=== PATIENT | female | born 1985 | race Hispanic/Latino ===

== ENCOUNTER 2020-02-07 19:41 | Inpatient (IN) | payer OTHER ==
[~2020-02-07] VITALS: Ht 170.2 cm; Wt 136.5 kg
--- NOTE | 2020-02-07 20:21 | Emergency Department Note ---
History of Present Illnes History of Present Illness Chief Complaint: cough, sob History of Present Illness This is a 34 year old female, with no significant past medical history, who presents with a 2 day history of progressively worsening cough, "difficulty catching her breath, and shortness of breath on exertion." Patient states that the cough has worsened today, and she is now coughing up brown sputum. She denies any hemoptysis. She states that she had fever 2 days ago just over 100, but that resolved without intervention. She denies any history of asthma, but she has had chest tightness and wheezing, especially with coughing. She also states that she has "soreness in her chest," with coughing. Patient denies any known sick contacts and no travel. She denies any exposure to people who aren't known to be positive for COVID 19. She denies any nausea, vomiting, abdominal pain, or diarrhea. ,and she is now coughing up brown sputum. She denies any history of asthma or smoking, but she has had chest tightness and wheezing, with the cough. She denies any pleuritic chest pain, but she is having "soreness in her lateral chest," with coughing. She had a temp of just over 100 degrees, 2 days ago, that resolved without intervention. Patient denies any known sick contacts or travel. She denies any exposure to people who have been positive for Covid 19. Patient denies any abdominal pain, nausea, vomiting, or dysuria. She also denies any LE pain or edema. Historian: Patient Arrival Mode: Car Additional Treatment MALWARE ANALYST: none Pulper Tender Required: No Onset (how long ago): day(s) Location: chest Quality: coughing, chest tightness and SOB Radiation: non-radiation Severity: moderate Onset quality: gradual Duration (how long): day(s) (2) Timing of current episode: constant Progression: worsening Chronicity: new Context: other (patient denies recent illness, travel, or immobilization. Patient had a DVT 5 years ago, during her last .) Relieving factors: none Exacerbating factors: movement (dyspnea on exertion) Associated symptoms: fever/chills (2 days ago, none in the last 24 hours.), shortness of breath Treatments prior to arrival: none Risk factors: Morbid obesity Past Medical/Family History Physician Review I have reviewed the patient's past medical and family history. Any updates have been documented here. Past Medical History Recent Fever: Yes (2 days ago, just over 100 degrees) Clinical Suspicion of Infectio: Yes New/Unexplained Change in Ment: No Past Medical History: DVT/PE (history of DVT,during last 5 years ago, treated with Lovenox, throughout the .) Past Surgical History: Tubal Ligation, (x3) Other Surgery: foot surgery Social History Smoking Cessation: Never Smoker Alcohol Use: None Any Illegal Drug Use: No TB Exposure/Symptoms: No Physically hurt or threatened: No Family History Family history of heart diseas: No Other Last Tetanus: unknown Any Pre-Existing Lines (PICC,: No Is patient up to date on immun: No Review of Systems Review of Systems Constitutional: fever EENTM: no symptoms Cardiovascular: no symptoms Respiratory: change in phlegm color, cough, pain with cough, dyspnea, dyspnea o n exertion Gastrointestinal: no symptoms Genitourinary: no symptoms Musculoskeletal: no symptoms Neurological: no symptoms Psychological: no symptoms Review of other systems All other systems reviewed and negative. Physical Exam Related Data Triage Vital Signs Vital Signs Date Time Temp Pulse Resp B/P (MAP) Pulse Ox O2 Delivery O2 Flow Rate FiO2 02/07/20 19:59 96 Room Air Vital signs reviewed: Yes Physical Exam CONSTITUTIONAL Constitutional: well-developed, well-nourished, other (no acute distress and non-toxic;) HENT HENT: normocephalic, atraumatic, oropharynx clear/moist, nose normal HENT L/R: left ext ear normal, right ext ear normal EYES Eyes: PERRL, conjunctivae normal NECK Neck: ROM normal, supple PULMONARY Pulmonary: effort normal, breath sounds normal (pt coughs with nearly each expiratory breath, with diminished breath sounds at the bases; no audible wheezes (over the coughing)) CARDIOVASCULAR Cardiovascular: regular rhythm, heart sounds normal, capillary refill normal, normal rate GASTROINTESTINAL Abdominal: soft, nontender, bowel sounds normal GENITOURINARY Genitourinary: exam deferred SKIN Skin: warm, dry MUSCULOSKELETAL Musculoskeletal: ROM normal (no LE edema, tenderness or swelling; likely) NEUROLOGICAL Neurological: alert, oriented x 3, no gross motor or sensory deficits PSYCHOLOGICAL Psychological: mood/affect normal, judgement normal Results Laboratory Laboratory CBC - normal CMP - nl D-dimer - elevated at 1160 Cardiacs nl except for myoglobin = 129 BNP - nl Influenza A/B - negative Lab results reviewed: Yes Imaging Imaging results reviewed: Yes Impressions [facility] [address] [address] Patient Name: BRANDYN GORDON MR #: [id number] : 1985 Age/Sex: 34/F Req #: [id number] Adm Physician: Ordered by: MARISSA GONZALEZ MD Report #: [id number] Location: [facility] Room/Bed: Procedure: [id number] HOPD/CT CHEST W/O CONTRAST-HOPD Exam Date: 02/07/20 Exam Time: 2130 REPORT STATUS: Signed EXAM: CT Chest WITHOUT contrast INDICATION: ^cough with shortness of breath ^20200207 ^2130 COMPARISON: None TECHNIQUE: Chest was scanned utilizing a multidetector helical scanner from the lung apex through the level of the adrenal glands without administration of IV contrast. Absence of intravenous contrast decreases sensitivity for detection of lymphadenopathy and vascular pathology. Coronal and sagittal reformations were obtained. Routine protocol was performed. IV CONTRAST: None COMPLICATIONS: None RADIATION DOSE: Total DLP: 746.25 mGy*cm Estimated effective dose: (DLP x 0.014 x size factor) mSv CTDIvol has been reviewed. It is below the limits set by the Radiation Protocol Committee (RPC). FINDINGS: LINES/ TUBES: None. LUNGS AND AIRWAYS: Diffuse bilateral patchy and groundglass airspace opacities. Airways are normal. PLEURA: The pleural spaces are clear. HEART AND MEDIASTINUM: The visualized thyroid gland is normal. No mediastinal, hilar or axillary lymphadenopathy. 1 cm right paratracheal lymph node, could be reactive. The heart is normal in size.. There is no pericardial effusion. Prominent right distal pulmonary artery (series 2, image 37). UPPER ABDOMEN: Mild splenomegaly. Small hiatal hernia. Otherwise, unremarkable. BONES: The visualized bony thorax is within normal limits. SOFT TISSUES: Unremarkable. IMPRESSION: Diffuse bilateral patchy and groundglass airspace opacities, representing multifocal pneumonia (atypical/viral pneumonia is suspected). Prominent right distal pulmonary artery, could be artifactual and cannot be accurately evaluated on this unenhanced study. If there is clinical concern for pulmonary embolism, PE protocol chest CT can be obtained for further evaluation. Signed by: Dr. Mason Nance MD on 02/07/2020 10:10 PM Dictated By: MASON NANCE MD 09 Transcribed By: MARIANNE on 02/07/202209 COPY TO: MARISSA GONZALEZ MD~ Diagnostics Tests Diagnostic test(s) reviewed: Yes Critical Care Time Subsequent provider I assumed direction of critical care for this patient from another provider of my specialty. Assessment & Plan Assessment & Plan Final Impression: (1) Atypical pneumonia (2) Pneumonia due to COVID-19 virus (3) Abnormal CT of the chest (4) Dyspnea on exertion (5) Shortness of breath (6) Morbid obesity Assessment & Plan 23:22 - case discussed with Dr. Marli Lujan, who was agreeable to admission, for further evaluation of a possible PE, due to "enlarged pulmonary artery on CT scan," that was performed without contrast, primarily to look at her lungs. - Patient's clinical presentation and findings on CT scan of the chest are highly suspicious for COVID19 infection. A COVID 19 swab is in process - The CT scan of the chest suggested a "possible enlarged right pulmonary artery," which can be seen in the setting of a pulmonary embolism. Since the CT chest was NOT performed with contrast, since it was a study to primarily evaluate the lungs due to her symptoms, along with sputum production, it cannot be determined with any certainty whether or not this finding could be due to blood clot(s) in the lungs. This is a concern, since blood clots can be seen concomitantly with COVID 19. Patient also has a history of DVT, approximately 5 years ago during her last , that was treated with Lovenox. Patient does have an elevated d-dimer, but it is difficult to know if this is due to her current pneumonia, versus a thrombotic process. - Patient is a very difficult IV access, and it took 6 attempts [address] order to [address] a 24-gauge IV in her right wrist for IV antibiotics and fluids. This makes a CT of the chest with IV contrast, not an option at this point, this would also be exposing patient to further radiation. I did not feel that the risk of central venous access in order to obtain this test was appropriate, at this time. Perhaps a VQ scan can be performed, if a larger bore IV cannot be obtained after she receives IV fluids. - Patient received 1 mg/kg subcutaneous of Lovenox, pending further evaluation of possible pulmonary embolus. - Patient received Zithromax 500 mg IV, for treatment of atypical pneumonia. Albuterol inhaler, with spacer, also ordered for her bronchospastic cough. - Discussed all these findings with the patient, and her sister by phone, along with my concern that she could have blood clots in her lungs, and treating her supportively at home, is not an option at this point. Patient was agreeable to admission, for further evaluation. Depart Disposition: ADMITTED Last Vital Signs Date Time Temp Pulse Resp B/P (MAP) Pulse Ox O2 Delivery O2 Flow Rate FiO2 02/07/20 19:59 96 Room Air MARISSA GONZALEZ MD Feb 07, 2020 20:21
[2020-02-07] MEDS ORDERED: SODIUM CHLORIDE 0.9% 1000ML 1,000 ML IV SCH (20:30)
--- NOTE | 2020-02-07 20:30 | NUR ---
{MD lexa PLACED PT ON ISOLATION DROPLET PRECAUTIONS }
--- NOTE | 2020-02-07 22:13 | Diagnostic Imaging Report ---
EXAM: CT Chest WITHOUT contrast INDICATION: ^cough with shortness of breath ^20200207 ^2130 COMPARISON: None TECHNIQUE: Chest was scanned utilizing a multidetector helical scanner from the lung apex through the level of the adrenal glands without administration of IV contrast. Absence of intravenous contrast decreases sensitivity for detection of lymphadenopathy and vascular pathology. Coronal and sagittal reformations were obtained. Routine protocol was performed. IV CONTRAST: None COMPLICATIONS: None RADIATION DOSE: Total DLP: 746.25 mGy*cm Estimated effective dose: (DLP x 0.014 x size factor) mSv CTDIvol has been reviewed. It is below the limits set by the Radiation Protocol Committee (RPC). FINDINGS: LINES/ TUBES: None. LUNGS AND AIRWAYS: Diffuse bilateral patchy and groundglass airspace opacities. Airways are normal. PLEURA: The pleural spaces are clear. HEART AND MEDIASTINUM: The visualized thyroid gland is normal. No mediastinal, hilar or axillary lymphadenopathy. 1 cm right paratracheal lymph node, could be reactive. The heart is normal in size.. There is no pericardial effusion. Prominent right distal pulmonary artery (series 2, image 37). UPPER ABDOMEN: Mild splenomegaly. Small hiatal hernia. Otherwise, unremarkable. BONES: The visualized bony thorax is within normal limits. SOFT TISSUES: Unremarkable. IMPRESSION: Diffuse bilateral patchy and groundglass airspace opacities, representing multifocal pneumonia (atypical/viral pneumonia is suspected). Prominent right distal pulmonary artery, could be artifactual and cannot be accurately evaluated on this unenhanced study. If there is clinical concern for pulmonary embolism, PE protocol chest CT can be obtained for further evaluation. Signed by: Dr. Mason Reese MD on 02/07/2020 10:10 PM
[2020-02-07] MEDS ORDERED: AZITHROMYCIN 500MG/NS 250 ML 250 ML ONE (23:11)
[2020-02-07] MEDS ORDERED: AZITHROMYCIN 500MG/NS 250 ML 250 ML IV ONE (23:15)
[2020-02-07] MEDS ORDERED: SODIUM CHLORIDE FLUSH 10 ML SYR INJ PRN (23:45)
[2020-02-07] MEDS ORDERED: ALBUTEROL SULFATE HFA 8GM INHALATION AEROSOL INH PRN (23:45)
[2020-02-07] MEDS ORDERED: ENOXAPARIN SODIUM INJ 100 MG/ML SYR SC SCH (23:45)
[2020-02-08] VITALS (10 sets, daily range): BP systolic 106–131; BP diastolic 56–86
--- NOTE | 2020-02-08 | NUR ---
{null, CALLED [facility]. ETA 2HRS. CALLED [facility] AND SHE STATED TO CALL SOMEONE ELSE }
--- NOTE | 2020-02-08 00:10 | NUR ---
{null, CALLED [facility]. THEY ARE IN ROUTE AT THIS TIME }
--- OUTSIDE RECORDS SUMMARY | 2020-02-08 00:12 | XMS REPORT | Continuity of Care Document ---
Author Author [facility] t Organization [facility] Address [address] [place] [address] Dr. Suresh [address] [place] [phone] Phone Unavailable Care Team Providers Care Product Marketing Engineer Name Role Phone Dena GONZALEZ Attscarlett Unavailable Problems This patient has no known problems. Allergies, Adverse Reactions, Alerts This patient has no known allergies or adverse reactions. Medications This patient has no known medications. Procedures This patient has no known procedures. Encounters Start Date/Time End Date/Time [facility] Source 2020-02-07 19:18:00 2020-02-07 19:18:00 Emergency E [facility] [id number] [facility] Results Test Description Test Time Test Comments Results Result Comments Source CT CHEST W/O CONTRAST-HOPD 2020-02-07 21:53:00 [facility] [address] [place], [place] [address] Patient Name: BRANDYN GORDON MR #: [id number] : 1985 Age/Sex: 34/F Req #: [id number] Adm Physician: Ordered by: MARISSA GONZALEZ MD Report #: [id number] Location: [facility] Room/Bed: Procedure: [id number] HOPD/CT CHEST W/O CONTRAST-HOPD Exam Date: 02/07/20 Exam Time: 2131 REPORT STATUS: Signed EXAM: CT Chest WITHOUT contrast INDICATION: cough with shortness of breath 20200207 COMPARISON: None TECHNIQUE: Chest was scanned utilizing a multidetector helical scanner from the lung apex through the level of the ad renal glands without administration of IV contrast. Absence of intravenous contrast decreases sensitivity for detection of lymphadenopathy and vascular pathology. Coronal and sagittal reformations were obtained. Routine protocol was performed. IV CONTRAST: None COMPLICATIONS: None RADIATION DOSE: Total DLP: 746.25 mGy*cm Estimated effective dose: (DLP x 0.014 x size factor) mSv CTDIvol has been reviewed. It is below the limits set by the Radiation Protocol Committee (RPC). FINDINGS: LINES/ TUBES: None. LUNGS AND AIRWAYS: Diffuse bilateral patchy and groundglass airspace opacities. Airways are normal. PLEURA: The pleural spaces are clear. HEART AND MEDIASTINUM: The visualized thyroid gland is normal. No mediastinal, hilar or axillary lymphadenopathy. 1 cm right paratracheal lymph node, could be reactive. The heart is normal in size.. There is no pericardial effusion. Prominent right distal pulmonary a rtery (series 2, image 37). UPPER ABDOMEN: Mild splenomegaly. Small hiatal hernia. Otherwise, unremarkable. BONES: The visualized bony thorax is within normal limits. SOFT TISSUES: Unremarkable. IMPRESSION: Diffuse bilateral patchy and groundglass airspace opacities, representing multifocal pneumonia (atypical/viral pneumonia is suspected). Prominent right distal pulmonary artery, could be artifactual and cannot be accurately evaluated on this unenhanced study. If there is clinical concern for pulmonary embolism, PE protocol chest CT can be obtained for further evaluation. Signed by: Dr. Mason Nance MD on 02/07/2020 10:10 PM Dictated By: MASON NANCE MD 09 Transcribed By: MARIANNE on 02/07/202209 COPY TO: MARISSA GONZALEZ MD
--- NOTE | 2020-02-08 00:38 | NUR ---
{null, EMS ARRIVED. REPORT GIVEN. }
[2020-02-08] MEDS ORDERED: ENOXAPARIN SODIUM INJ 100 MG/ML SYR SC SCH (02:00)
[2020-02-08] MEDS: GUAIFENESIN/CODEINE 10 ML CUP PO PRN ×3 (02:27→16:15)
--- NOTE | 2020-02-08 06:42 | NUR ---
{null, Spoke with Georgia at Dr. Tom's answering service regarding new consult at 0624. Notified Dr. Faustin of new consult at 0628. }
--- NOTE | 2020-02-08 10:02 | Consultation ---
DATE OF CONSULTATION: Pulmonary Critical Care Consultation CHIEF COMPLAINT: Dyspnea and cough. HISTORY OF PRESENT ILLNESS: The patient is a 34-year-old woman. She denies any past medical history. She has noted cough and malaise for the past 2 days. She notices some shortness of breath, but is unsure about fevers. She does not have chest pain. There is no nausea or vomiting. The patient went to the [facility] ER. She was found to be COVID positive. She also had a CT scan of the chest that showed bilateral infiltrates suggestive of atypical viral pneumonia as well as possible narrowing of the distal right pulmonary artery. The radiologist felt he could not exclude pulmonary embolism. PAST SURGICAL HISTORY: Noncontributory. PAST MEDICAL HISTORY: 1. No prior history of respiratory problems. 2. No prior history of cardiac problems. 3. No hypertension or diabetes. ALLERGIES: NO KNOWN DRUG ALLERGIES. SOCIAL HISTORY: The patient is not a smoker or a drinker. FAMILY HISTORY: Family history is noncontributory. REVIEW OF SYSTEMS: The patient has no headache. There are no clear fevers. The patient did have some dyspnea. She had some cough. She has no chest pain. She has no abdominal pain. She has no nausea or vomiting. She has no leg edema. PHYSICAL EXAMINATION: VITAL SIGNS: The blood pressure is 120/56 and the saturation is 95% on 2 L. The pulse is 69. HEENT: No facial swelling or erythema. CARDIAC: Reveals regular rate and rhythm with normal S1 and S2. LUNGS: Auscultation of lungs reveals clear breath sounds bilaterally. There is no wheezing. ABDOMEN: Soft and nontender. There is no rebound or guarding. EXTREMITIES: No leg edema or calf tenderness. There is no cyanosis or clubbing. SKIN: No rashes. NEUROLOGICAL: No focal abnormalities. LABORATORY DATA: The CBC and CMP are normal. The COVID-19 test is positive. RADIOGRAPHIC DATA: CT of the chest shows bilateral infiltrates. IMPRESSION: 1. Viral pneumonia and COVID-19 infection. 2. Elevated D-dimer and possible pulmonary embolism. PLAN: 1. Zithromax. 2. Oxygen. 3. V/Q scan. 4. Tylenol as needed. 5. Continue Lovenox until results of V/Q scan are available. Paco M Roxie, MD [facility]/UZAIRL /[id number]
[2020-02-08] MEDS ORDERED: ACETAMINOPHEN 325 MG TAB PO PRN (12:30)
[2020-02-08] MEDS: ACETAMINOPHEN 325 MG TAB PO PRN (12:42)
[2020-02-08] MEDS: ENOXAPARIN SOD INJ 120 MG/0.8 ML SYR SC SCH (14:33)
[2020-02-08 16:15] LABS: ANION GAP 14.7 mmol/L (8-16); BLOOD UREA NITROGEN 5 mg/dL (7-26); BUN/CREATININE RATIO 8 (6-25); CALCIUM 8.2 mg/dL (8.4-10.2); CARBON DIOXIDE 23 mmol/L (22-29); CHLORIDE 104 mmol/L (98-107); CREATININE, SERUM 0.65 mg/dL (0.57-1.11); EST GLOMERULAR FILTRATION RATE > 60 ML/MIN (60-); GLUCOSE 118 mg/dL (74-118); POTASSIUM 3.7 mmol/L (3.5-5.1); SODIUM 138 mmol/L (136-145)
--- NOTE | 2020-02-08 16:29 | NUR ---
{null, NO IV ACCESS AT THIS TIME. PHYSICIAN NOTIFIED. CURRENTLY AWAITING FOR INSERTION OF PICC OR MIDLINE. }
--- NOTE | 2020-02-08 16:29 | NUR ---
{null, consult The patient is a 34-year-old woman. She denies any past medical history. She has noted cough and malaise for the past 2 days. She notices some shortness of breath, but is unsure about fevers. She does not have chest pain. There is no nausea or vomiting. [id number] }
[2020-02-08] MEDS: AMOXICILLIN/CLAVULANATE K 875 MG TAB PO SCH (21:00)
[2020-02-08] MEDS ORDERED: AZITHROMYCIN 500MG/NS 250 ML 250 ML IV SCH (22:00)
[2020-02-09 00:15] VITALS: BP 118/75
--- NOTE | 2020-02-09 00:25 | Consultation ---
DATE OF CONSULTATION: HISTORY OF PRESENT ILLNESS: Ms. Martinez is a 34-year-old female, comes in with 3 days of fever, chills, cough. The patient denies any shortness of breath. No chest pain. The patient came to the emergency room. She was positive for COVID-19, so she was admitted. She had a CT scan of chest, which showed bilateral infiltrate suggestive of atypical pneumonia. The patient is being admitted. She is feeling good, however, really there is no shortness of breath and she is on room air. LABORATORY DATA: Sodium 138, potassium 3.7 with creatinine 0.65. PHYSICAL EXAMINATION: GENERAL: She is currently alert, oriented, does not seem to be in acute distress. There is no fever. HEENT: She is not icteric. NECK: Supple. CHEST: Clear. A few crackles bilateral. HEART: S1 and S2. ABDOMEN: Soft. IMPRESSION: I think the patient has Coronavirus disease 2019 pneumonia, clinically seems to be stable. We will give her Z-Marvin. Can have oral zinc supplement for 10 days, vitamin C for 10 days, push p.o. fluid, could be discharged home from Infectious Disease point of view, as though she is not short of breath and clinically stable. MD EYAL Hopkins/JARETH /[id number]
[2020-02-09] MEDS: ENOXAPARIN SOD INJ 120 MG/0.8 ML SYR SC SCH ×2 (01:05→14:17)
[2020-02-09] MEDS: GUAIFENESIN/CODEINE 10 ML CUP PO PRN ×2 (01:34→11:56)
[2020-02-09] MEDS: ZOLPIDEM TARTRATE 5 MG TAB PO PRN (01:35)
[2020-02-09] MEDS: ACETAMINOPHEN 325 MG TAB PO PRN ×3 (01:35→20:21)
[2020-02-09 04:07] VITALS: BP 114/70
[2020-02-09 05:37] LABS: BASOPHILS % 0.3 % (0.0-1.0); EOSINOPHILS # (AUTO) 0.1 (0.0-0.4); EOSINOPHILS % 2.2 % (0.0-6.0); HEMATOCRIT 38.1 % (34.2-44.1); LYMPHOCYTES # (AUTO) 1.8 (1.0-3.2); LYMPHOCYTES % 49.5 % (18.0-39.1); MEAN CORPUSCULAR HEMOGLOBIN 26.1 pg (28-32); MEAN CORPUSCULAR HGB CONC 31.5 g/dL (31-35); MEAN CORPUSCULAR VOLUME 82.8 fL (81-99); MONOCYTES # (AUTO) 0.3 (0.2-0.8); MONOCYTES % 7.3 % (4.4-11.3); NEUTROPHILS # (AUTO) 1.5 (2.1-6.9); NEUTROPHILS % 40.2 % (38.7-80.0); PLATELET COUNT 214 x10e3/uL (140-360); RED CELL DISTRIBUTION WIDTH 13.1 % (11.7-14.4)
[2020-02-09 06:13] LABS: ALANINE AMINOTRANSFERASE 18 IU/L (0-55); ALBUMIN 2.9 g/dL (3.5-5.0); ALBUMIN/GLOBULIN RATIO 0.7 (0.8-2.0); ALKALINE PHOSPHATASE 57 IU/L (40-150); ANION GAP 15.9 mmol/L (8-16); BLOOD UREA NITROGEN 5 mg/dL (7-26); BUN/CREATININE RATIO 8 (6-25); CALCIUM 8.2 mg/dL (8.4-10.2); CARBON DIOXIDE 23 mmol/L (22-29); CHLORIDE 104 mmol/L (98-107); EST GLOMERULAR FILTRATION RATE > 60 ML/MIN (60-); GLUCOSE 98 mg/dL (74-118); POTASSIUM 3.9 mmol/L (3.5-5.1); SODIUM 139 mmol/L (136-145)
--- NOTE | 2020-02-09 07:21 | NUR ---
{null, ASSUMED CARE. AAOX3. RESTING IN BED. ACYANOTIC. NO DISTRESS NOTED. CALL LIGHT IN REACH. SIDERAILS UP X2. BED LOW. }
[2020-02-09 08:00] VITALS: BP 126/66
[2020-02-09] MEDS: AMOXICILLIN/CLAVULANATE K 875 MG TAB PO SCH (08:20)
[2020-02-09 08:59] VITALS: BP 126/66
[2020-02-09] MEDS ORDERED: AMOXICILLIN/CLAVULANATE K 500 MG TAB PO SCH (09:00)
[2020-02-09] MEDS ORDERED: AZITHROMYCIN ORAL SUSP 200 MG/5 ML PO SCH (09:00)
--- NOTE | 2020-02-09 10:58 | Progress Note ---
DATE: 02/09/2020 SUBJECTIVE: Ms. Martinez is a 34-year-old female who lives at home, who denies any prior medical history, started one week prior to admission feeling funny with some body aches. The day before admission, she started having cough and shortness of breath with phlegm and fever. She was found to have bilateral pneumonia, COVID test came back positive, so the patient was admitted to the hospital today. OBJECTIVE: I interviewed the patient over the phone. Temperature is 98, blood pressure 126/66, and O2 saturation is 99. The patient states she is still coughing and short of breath when she walks to the restroom. No worsening compared with yesterday. She is supposed to go for a V/Q scan today to rule out pulmonary embolus. ASSESSMENT: 1. Atypical pneumonia. 2. Pneumonia due to coronavirus disease-19. 3. Morbid obesity. 4. Elevated D-dimer, rule out pulmonary embolus. PLAN: Plan at the present time is to continue oxygen. Continue neb treatments. Continue azithromycin, like I say the patient is to continue Lovenox. The patient is going to go for a V/Q scan to rule out a pulmonary embolus. All this was discussed over the phone with the patient. All questions were answered to satisfaction. MD ZOE Fulton/MODL /[id number]
--- NOTE | 2020-02-09 11:16 | NUR ---
{null, CONFIRMED WITH [facility] THAT ORDERED VQ SCAN WILL BE PERFORMED TODAY. STAFF FROM [facility] INFORMED ME THAT THE PROCEDURE WILL BE COMPLETED AFTER 2 HOURS FROM NOW. }
[2020-02-09 16:00] VITALS: BP 142/98
--- NOTE | 2020-02-09 16:48 | NUR ---
{null, progress [id number] }
--- NOTE | 2020-02-09 17:39 | NUR ---
{null, CURRENTLY AWAITING PLACEMENT OF MIDLINE/PICC FOR V/Q SCAN }
[2020-02-09] MEDS ORDERED: CEFTRIAXONE SOD 2 GM/NS 100 ML 100 ML IV SCH (18:00)
[2020-02-09] MEDS ORDERED: SODIUM CHLORIDE 0.9% 250ML 250 ML ONE (18:38)
--- NOTE | 2020-02-09 19:54 | Progress Note ---
DATE: SUBJECTIVE: Ms. Martinez is feeling worse today. She said she is feeling short of breath. She is coughing. PHYSICAL EXAMINATION: GENERAL: She is currently alert, oriented. VITAL SIGNS: Stable, currently afebrile. HEENT: She is not icteric. NECK: Supple. CHEST: Few crackles bilateral. HEART: S1, S2. No murmurs. ABDOMEN: Soft. IMAGING DATA: Her CT scan V/Q scan showed there is pulmonary embolism. IMPRESSION: Pneumonia present on admission, COVID-19 concerned about superimposed bacterial infection. She says she is coughing up brownish sputum. We will DC Augmentin. She refused IV antibiotic yesterday. We had to put her back on azithromycin and Zosyn. We will put her on azithromycin and Rocephin. We will observe the patient clinically. We will follow. MD EYAL Hopkins/JARETH /[id number]
[2020-02-09 20:00] VITALS: BP 131/73
--- NOTE | 2020-02-09 20:25 | Diagnostic Imaging Report ---
EXAM: CHEST XRAY LINE PLACEMENT DATE: 02/09/2020 7:55 PM INDICATION: ^CONFIRMATION PICC/MIDLINE PLACEMENT ^[id number] ^1954 COMPARISON: None FINDINGS: Lines and tubes: There is a right PICC. Catheter tip is obscured by motion artifact but extensive least to the mid SVC level. Cardiac silhouette is slightly enlarged but likely accentuated by portable technique and low lung volumes. No focal pulmonary opacity, pleural effusion or pneumothorax. Mildly prominent markings at the lung bases likely accentuated by low lung volumes. Upper abdomen unremarkable. No acute bony abnormality. IMPRESSION: Right PICC extends to the mid SVC. The tip may be slightly lower but obscured by artifact and underpenetration. No evidence for acute disease in the chest. Signed by: Dr. Hung Kimbrough M.D. on 02/09/2020 8:22 PM
[2020-02-09] MEDS: CEFTRIAXONE SOD 2 GM/NS 100 ML 100 ML IV SCH (21:00)
[2020-02-09] MEDS: AZITHROMYCIN 250 MG TAB PO SCH (21:00)
[2020-02-09] MEDS ORDERED: AZITHROMYCIN 500MG/SOD CHL 0.9% 250ML BAG IV SCH (22:00)
[2020-02-09] MEDS ORDERED: SODIUM CHLORIDE 0.9% 50ML 50 ML ONE (22:10)
[2020-02-09] MEDS ORDERED: IOPAMIDOL 370 MG/ML 200 ML INFUS..BTL INJ ONE (22:10)
--- NOTE | 2020-02-09 22:33 | Diagnostic Imaging Report ---
EXAM: CT Chest WITH contrast (PE Protocol) INDICATION: ^PE PROTOCOL ^[id number] ^[id number] ^N COMPARISON: Same day chest x-ray, chest CT dated 02/07/2020 TECHNIQUE: Chest was scanned utilizing a multidetector helical scanner from the lung apex through the level of the diaphragm after administration of IV contrast. Thin section reconstructions were obtained with special concentration on the pulmonary arteries. Coronal and sagittal reformations were obtained. Dose modulation, iterative reconstruction, and/or weight based adjustment of the mA/kV was utilized to reduce the radiation dose to as low as reasonably achievable. Pulmonary embolism protocol was performed. IV CONTRAST: 100 mL of Omnipaque 350 COMPLICATIONS: None RADIATION DOSE: Total DLP: 425.27 mGy*cm Estimated effective dose: (DLP x 0.014 x size factor) mSv CTDIvol has been reviewed. It is below the limits set by the Radiation Protocol Committee (RPC). FINDINGS: LINES/ TUBES: None. LUNGS AND AIRWAYS: No filling defect is identified within the pulmonary arteries to the segmental level. Bilateral patchy and groundglass airspace opacities. Airways are normal. PLEURA: The pleural spaces are clear. HEART AND MEDIASTINUM: The visualized thyroid gland is normal. No mediastinal, hilar or axillary lymphadenopathy. Slightly prominent right hilar lymph nodes, likely reactive. The heart is normal in size.. There is no pericardial effusion. . Main pulmonary artery measures 2.9 cm in diameter. UPPER ABDOMEN: Unremarkable BONES: The visualized bony thorax is within normal limits. SOFT TISSUES: Unremarkable. IMPRESSION: No pulmonary emboli. Not significantly changed diffuse bilateral patchy and groundglass airspace opacities, representing multifocal pneumonia. Signed by: Dr. Mason Reese MD on 02/09/2020 10:30 PM
[2020-02-09] MEDS ORDERED: MORPHINE SULFATE INJ 4 MG/ML INJ 1ML IV PRN (22:45)
[2020-02-10] VITALS (8 sets, daily range): BP systolic 108–128; BP diastolic 58–78
[2020-02-10] MEDS: GUAIFENESIN/CODEINE 10 ML CUP PO PRN ×3 (01:00→21:30)
[2020-02-10] MEDS: ZOLPIDEM TARTRATE 5 MG TAB PO PRN ×2 (01:00→21:30)
[2020-02-10] MEDS: HYDROCODONE/APAP 10MG-325MG TAB PO PRN ×3 (01:00→21:30)
[2020-02-10] MEDS: ENOXAPARIN SOD INJ 120 MG/0.8 ML SYR SC SCH ×2 (02:00→14:43)
[2020-02-10] MEDS: AZITHROMYCIN 250 MG TAB PO SCH (08:28)
--- NOTE | 2020-02-10 08:56 | Progress Note ---
DATE: SUBJECTIVE: The patient had a CT scan of the chest with pulmonary angiogram protocol. There were no pulmonary emboli seen. The patient still has some cough and some dyspnea. PHYSICAL EXAMINATION: VITAL SIGNS: The blood pressure is 113/63, saturation is 98%. HEENT: No facial swelling or erythema. CARDIAC: Reveals a regular rate and rhythm with normal S1 and S2. LUNGS: Auscultation of lungs shows clear breath sounds bilaterally. There is no wheezing. ABDOMEN: Soft and nontender. There is no rebound or guarding. EXTREMITIES: No leg edema or calf tenderness. There is no cyanosis or clubbing. SKIN: No rashes. IMPRESSION: Viral pneumonia and COVID-19. PLAN: 1. Continue Zithromax. 2. Oxygen. 3. Tylenol. 4. Continue Lovenox. 5. Out of bed as tolerated. MD JOSE C Pollock/JARETH /[id number]
--- NOTE | 2020-02-10 09:15 | NUR ---
{null, Telephone visit made by home mortgage disclosure act specialist. Pt states she "misses her kids." [employer] Diox[employer] Operator provided empathic listening and prayer. Provided information on how to reach home mortgage disclosure act specialist, if needed. Will follow as able. ALICIA SYLVESTER Carbon Dioxide Operator Spiritual Care Department O: [phone] }
--- NOTE | 2020-02-10 09:41 | NUR ---
{null, GAVE PACKET OF INFORMATION WITH COMM[facility]ITY [employer] FOR ASSISTANCE WITH LOW TO NO INCOME TO PATIENT. RESOURCES THAT PATIENT MAY BE ABLE TO FOLLOW UP UPON DISCHARGE. PT EDUCATED ON EACH RESOURCE AND UNDERSTANDING HOW TO FOLLOW UP TO SEE IF QUALIFIED FOR EACH RESOURCE. }
--- NOTE | 2020-02-10 09:42 | Progress Note ---
DATE: 02/10/2020 SUBJECTIVE: Ms. Martinez is a 34-year-old female, who denies any prior medical history. She states a one week prior to admission, she started having body aches. The day before admission she started having shortness of breath and cough as well as fever, came to the emergency room. She was found to have bilateral pneumonia, COVID test came back positive. Yesterday, she went for a chest CT that showed no pulmonary embolus and showed multifocal pneumonia. The chest CT was done because the D-dimer was a little elevated. Over the phone, I talked to her today and explained all the results. The patient states, she is still having cough and she gets chest pain when she coughs, so she is on oxygen 1 L/minute and she is getting morphine for the pain and Zofran for the nausea and vomiting. OBJECTIVE: VITAL SIGNS: Temperature is 98 and blood pressure 118/75, like I said before the chest CT shows bilateral infiltrates. ASSESSMENT: 1. Multifocal pneumonia. 2. Multifocal pneumonia due to coronavirus disease. 3. Morbid obesity. 4. Elevated D-dimer, but pulmonary embolus was ruled out. PLAN: At present time is to continue oxygen, neb treatments. Continue Rocephin and azithromycin for superimposed bacterial infection. Continue morphine for pain. Zofran for nausea and vomiting. All this was discussed in extension with the patient. All questions were answered to satisfaction. MD ZOE Fulton/JARETH /[id number]
--- NOTE | 2020-02-10 14:43 | NUR ---
{null, AAOX3. ACYANOTIC. PATIENT ON ROOM AIR WITH O2 SAT AT 97 PERCENT. RESTING IN BED WITH HOB ELEVATED. NO DISTRESS NOTED. PATIENT AMBULATED IN ROOM. OXYGEN LEVEL DECREASED TO 95 PERCENT ON EXERTION. DRY COUGH NOTED DURING EXERTION. PT ENCOURAGED TO WALK FREQUENTLY IN ROOM. VERBALIZED UNDERSTANDING. }
--- NOTE | 2020-02-10 14:59 | NUR ---
{null, PROGRESS [id number] }
--- NOTE | 2020-02-10 19:14 | Progress Note ---
DATE: 02/10/2020 SUBJECTIVE: Ms. Martinez is lying in bed comfortably. She says she is feeling better. She had a PICC line yesterday and was started on IV antibiotic yesterday and today she is feeling slightly better. She says she is still coughing some thick brown sputum. REVIEW OF SYSTEMS: Unremarkable. She is not on oxygen, but she is still coughing. PHYSICAL EXAMINATION: GENERAL: She is currently alert, oriented. VITAL SIGNS: Stable, afebrile. HEENT: She is not icteric. NECK: Supple. CHEST: Crackles bilaterally. COR: S1-S2. ABDOMEN: Soft. IMPRESSION: Coronavirus disease-19 superimposed bacterial pneumonia, on azithromycin and Rocephin, improving. Hopefully tomorrow, we will discharge her with 5 days of Augmentin and azithromycin and follow up as an outpatient. Discussed with the patient. MD EYAL Hopkins/JARETH /[id number]
[2020-02-10] MEDS: CEFTRIAXONE SOD 2 GM/NS 100 ML 100 ML IV SCH (21:00)
[2020-02-11] VITALS: BP 113/62
[2020-02-11] MEDS: ENOXAPARIN SOD INJ 120 MG/0.8 ML SYR SC SCH ×2 (02:13→15:00)
[2020-02-11 04:00] VITALS: BP 114/69
[2020-02-11 08:00] VITALS: BP 115/62
[2020-02-11] MEDS: AZITHROMYCIN 250 MG TAB PO SCH (08:36)
[2020-02-11] MEDS: HYDROCODONE/APAP 10MG-325MG TAB PO PRN (09:00)
[2020-02-11 09:54] VITALS: BP 115/62
[2020-02-11] MEDS: GUAIFENESIN/CODEINE 10 ML CUP PO PRN (10:57)
--- NOTE | 2020-02-11 11:42 | Progress Note ---
DATE: 02/11/2020 SUBJECTIVE: Ms. Martinez is a 34-year-old female with no prior medical history one week prior to admission started with body aches, then she developed shortness of breath and cough as well as fever, came to the emergency room. She was found to have bilateral pneumonia, COVID test came back positive. She has been coughing. She is off oxygen, but yesterday she had vomiting and diarrhea. Over the phone, I talked with the patient and she states that she is feeling better regarding no needing oxygen, but she had vomiting twice and she is having diarrhea right now. OBJECTIVE: VITAL SIGNS: Temperature is 97.9, blood pressure 115/62. LABORATORY DATA: On the blood work, COVID was positive. Potassium 3.9, creatinine was 0.63. White count 3.72, hemoglobin 12, hematocrit 38.1. Chest CT done on the showed multifocal pneumonia. ASSESSMENT: 1. Multifocal pneumonia secondary to the coronavirus. 2. Coronavirus disease- 19 positive. 3. Vomiting and diarrhea probably due to coronavirus disease 19. 4. Morbid obesity, mild. 5. Elevated D-dimer with negative CT for PE. PLAN: At the present time, she is to continue neb treatment. Continue on antibiotics. Continue morphine for pain and Zofran for nausea and vomiting. We will wait to see what Dr. Tom and Dr. Faustin think about her going home maybe tomorrow if she is stable. All this was discussed in extension with the patient. All questions were answered to satisfaction. MD ZOE Fulton/JARETH /[id number]
--- NOTE | 2020-02-11 11:48 | NUR ---
{null, DR MONTESINOS COMING TO WRITE SCRIPTS FOR ABX TODAY CLEARED BY Olga LAKHANI FOR DC HOME CALL PLACED TO DR EUBANKS FOR DISCHARGE TODAY }
[2020-02-11 12:00] VITALS: BP 117/55
[2020-02-11] MEDS: ACETAMINOPHEN 325 MG TAB PO PRN (12:07)
--- NOTE | 2020-02-11 15:39 | NUR ---
{null, patient discharged. right upper arm picc removed- tip intact. patient clear on discharge instructions & prescription given to patient. pt aware of follow up appt needed. waiting for to arrive to pick her up at this time. }
--- NOTE | 2020-02-11 18:09 | Progress Note ---
DATE: SUBJECTIVE: Ms. Martinez is feeling much better. REVIEW OF SYSTEMS: Otherwise unremarkable. PHYSICAL EXAMINATION: GENERAL: She is currently alert, oriented, does not seem to be in acute distress. VITAL SIGNS: Stable, afebrile. HEENT: Not icteric. NECK: Supple. CHEST: Clear. The patient is feeling much better. The patient was discharged home. We will give prescription for Z-Marvin, cough syrup, aspirin 1 p.o. daily. See me in the office as an outpatient in 3 weeks. MD EYAL Hopkins/JARETH /[id number]
== END 2020-02-11 16:57 | disposition home or self-care (01) | DRG 177 ==
LOC: FSED 19:41 → ERHOLD 02-08 → IMCU 02-08 01:00 → OBSVTOIN 02-08 12:19
PROVIDERS: ADMIT Internal Medicine; ATTEND Internal Medicine
PROC: 02HV33Z Insertion of Infusion Device into Superior Vena Cava, Percutaneous Approach (ICD-10-PCS; principal; 2020-02-08)
PROC: B548ZZA Ultrasonography of Superior Vena Cava, Guidance (ICD-10-PCS; 2020-02-08)
PROC: 02HV33Z Insertion of Infusion Device into Superior Vena Cava, Percutaneous Approach (ICD-10-PCS; 2020-02-09)
PROC: B548ZZA Ultrasonography of Superior Vena Cava, Guidance (ICD-10-PCS; 2020-02-09)
DX: U07.1 COVID-19 (principal); J12.89 Other viral pneumonia; J15.9 Unspecified bacterial pneumonia; Z68.42 Body mass index [BMI] 45.0-49.9, adult; E66.01 Morbid (severe) obesity due to excess calories; Z86.718 Personal history of other venous thrombosis and embolism; R79.89 Other specified abnormal findings of blood chemistry
CPT/HCPCS: 36415; 36569; 71045; 71250; 71260; 74470; 80048; 80053; 82553; 83880; 85025; 85379; 87400; 87635; 94760; 96365; 96372; 99284; J0456; J0696; J1650; J7030; J7050; Q9967

== ENCOUNTER 2022-11-16 13:55 | Emergency (ER) | payer SELFPAY ==
[~2022-11-16] VITALS: Ht 167.6 cm; Wt 130.7 kg
[2022-11-16] MEDS ORDERED: CEFUROXIME500 MG PO (15:03)
== END 2022-11-16 15:15 | disposition home or self-care (01) ==
LOC: FSED 14:05
DX: R30.0 Dysuria (principal); N39.0 Urinary tract infection, site not specified; R10.30 Lower abdominal pain, unspecified; E66.9 Obesity, unspecified; Z86.718 Personal history of other venous thrombosis and embolism
CPT/HCPCS: 81003; 81025; 99283

== ENCOUNTER 2022-12-21 08:19 | Emergency (ER) | payer SELFPAY ==
[~2022-12-21] VITALS: Ht 167.6 cm; Wt 126.6 kg
[~2022-12-21 08:19] MED LIST: CEFUROXIME500 MG PO
[2022-12-21] MEDS ORDERED: BENZONATATE100 MG PO (08:50)
== END 2022-12-21 09:06 | disposition home or self-care (01) ==
LOC: FSED 08:26
DX: R05.9 Cough, unspecified (principal); J02.9 Acute pharyngitis, unspecified; J06.9 Acute upper respiratory infection, unspecified; E66.9 Obesity, unspecified; Z86.718 Personal history of other venous thrombosis and embolism
CPT/HCPCS: 83518; 99282